=== PATIENT | female | born 1995 | race Caucasian/White ===

== ENCOUNTER 2018-12-13 08:10 | Inpatient (IN) | payer OTHER ==
[~2018-12-13] VITALS: Ht 182.9 cm; Wt 81.6 kg
[2018-12-13 08:16] VITALS: BP 134/89
[2018-12-13 08:36] LABS: URINE CLARITY CLEAR; URINE COLOR YELLOW
[2018-12-13 08:37] LABS: URINE BILIRUBIN NEGATIVE (Negative); URINE BLOOD NEGATIVE (Negative); URINE GLUCOSE-RANDOM* NEGATIVE (Negative); URINE KETONES 1+ (Negative); URINE LEUKOCYTES-REFLEX NEGATIVE (Negative); URINE NITRITE-REFLEX NEGATIVE (Negative); URINE PROTEIN (DIPSTICK) NEGATIVE (Negative); URINE UROBILINOGEN 0.2 E.U./dl (0.2-1.0)
[2018-12-13 08:46] LABS: ABSOLUTE NEUTROPHILS 7.1 thou/uL (1.4-8.2); BASOPHILS 0.6 % (0.0-2.0); EOSINOPHILS 0.3 % (0.0-3.0); HEMATOCRIT 40.1 % (37.0-47.0); HEMOGLOBIN 13.4 gm/dL (12.0-15.0); MCH 26.8 pg (26.0-34.0); MCHC 33.4 g/dL (28.0-37.0); MCV 80.2 fL (80.0-100.0); MONOCYTES 6.9 % (1.0-8.0); PLATELET COUNT 254 thou/uL (150-400); POLYS 78.2 % (36.0-66.0); RDW 14.2 % (10.5-14.5); WBC 9.1 thou/uL (4.0-11.0)
[2018-12-13 08:53] LABS: CALCIUM 9.7 mg/dL (8.5-10.1); CREATININE 1.1 mg/dL (0.6-1.0); POTASSIUM 3.7 mmol/L (3.5-5.1)
[2018-12-13 08:59] LABS: ALBUMIN 4.2 g/dL (3.4-5.0); TOTAL BILIRUBIN 0.3 mg/dL (<0.1-1.0); TOTAL PROTEIN 7.9 g/dL (6.4-8.2)
[2018-12-13 09:48] VITALS: BP 132/79
[2018-12-13 10:46] VITALS: BP 121/82
[2018-12-13 11:49] VITALS: BP 115/77
--- NOTE | 2018-12-13 11:51 | NUR ---
ASSUMED CARE OF PT AT 11:00. ARRIVED FROM ED IN STABLE CONDITION WITH S.O. AT BEDSIDE. ORIENTED TO ROOM AND CALL LIGHT. ADMISSION ASSESSMENT COMPLETED. A&0,X4. C/O RLQ ABD PAIN AND ACUTE APPENDITCITIS. ABD FLAT, SOFT, TENDER TO TOUCH. PAIN MEDS GIVEN ORDERED. DENIES N/V/D AT THIS TIME. LAST BM YESTERDAY, ACTIVE BOWEL SOUNDS. ALL OTHER SYSTEMS WNL, CLEAR LUNG SOUNDS AND REGULAR HEART SOUNDS. NO EDEMA. SKIN INTACT. POC LAP APPI AT 14:00 AND TO GO HOME AFTER. DR. HANSEN AT BEDSIDE EARLIER. PT STATES NO QUESTIONS OR CONCERNS. WILL CONTINUE TO MONITOR.
--- NOTE | 2018-12-13 12:13 | NUR ---
PAIN WELL CONTROLLED. PT LEFT FOR SURGERY IN STABLE CONDITION AT 12:13 WITH S.0. AT BEDSIDE AND ALL PT BELONGINGS.
[2018-12-13] MEDS ORDERED: NORCO 5-325 TA1 EACH PO (14:51)
--- NOTE | 2018-12-13 16:30 | NUR ---
PT ARRIVED TO ROOM FROM PACU IN STABLE CONDITION AT 16:30. S.O. AT BEDSIDE. 3 LAP SITES SEALED WITH DERMABOND, NO BLEEDING NOTED. ICE APPLIED TO SITE. ROOM AIR. DENIES NAUSEA. C/O 5/10 ABD PAIN, PAIN MEDS GIVEN ORDERED. TOLERATING CLEARS, WILL ADVANCE DIET. WILL CONTINUE TO MONITOR.
[2018-12-13 18:10] VITALS: BP 115/77
--- NOTE | 2018-12-13 19:56 | NUR ---
PT HAS DISCHARGE ORDERS. TOLERATED REGULAR DIET TRAY, NO N/V. PAIN WELL CONTROLLED WITH MEDS. LAP SITES APPEAR C/D/I. PT LEFT THE UNIT AT 19:50 VIA WHEELCHAIR IN STABLE CONDITION WITH S.O. SCRIPTS WERE GIVEN TO THE PATIENT AFTER SURGERY. IV REMOVED, NO BLEEDING NOTED. ALL BELONGINGS COLLECTED AND SENT WITH PT. PT STATES NO QUESTIONS OR CONCERNS.
--- NOTE | 2018-12-14 12:26 | O ---
[facility] [address] OPERATIVE REPORT Name: ED CALVERTN Room #: 432-P [facility] IN M.R.#: [id number] Admission: 12/13/18 Attend Phys: Radha Sorto MD, Discharge: 12/13/18 Date of : 89 Report #: [id number] THIS REPORT FOR: //name// CC: KIARA ULRICHWORTH FAM unknown Radha Sorto DATE OF SERVICE: 12/13/2018 PREOPERATIVE DIAGNOSIS: Acute appendicitis. POSTOPERATIVE DIAGNOSIS: Acute appendicitis. PROCEDURE: Laparoscopic appendectomy. SURGEON: Radha Sorto M.D. 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 ANESTHESIA: General endotracheal anesthesia. ESTIMATED BLOOD LOSS: Minimal (less than 5 mL). COMPLICATIONS: None appreciated. SPECIMENS: Appendix to pathology. INDICATIONS: The patient is a 23-year-old female who presented with severe sudden onset right lower quadrant abdominal pain and nausea, with a workup showing dilated appendix with periappendiceal stranding concerning for acute appendicitis. As such, indication was for the above-mentioned procedure today. DESCRIPTION OF PROCEDURE: After explaining the risks, benefits and alternatives of the procedure with the patient in detail and obtaining consent, the patient was brought to the operating room and placed supine on the operating room table. After conducting a thorough timeout procedure verifying correct patient and procedure, the patient was given general endotracheal anesthesia. Once adequate anesthesia was obtained, SCDs were placed on the patient's bilateral lower extremities. She was given a preoperative dose of antibiotics in line with the SCIP protocol. The patient's abdomen was prepped and draped in standard surgical sterile fashion. 5 mL of 0.5% Marcaine with epinephrine were used to anesthetize the skin in the infraumbilical location. A #15 bladed scalpel was used to create a 1 cm transverse skin incision at this location. A 12 mm Visiport was placed over a 5-mm 0-degree laparoscope, which was used to obtain intra-abdominal access through this incision site. Once intra-abdominal access was verified visually, the obturator for the trocar and laparoscope were both [address] [address] OPERATIVE REPORT Name: ED CALVERT Room #: 432-P [facility] IN .R.#: [id number] Admission: 12/13/18 Attend Phys: Radha Sorto MD, Discharge: 12/13/18 Date of : [birth year] Report #: [id number] removed and the abdomen was insufflated to 15 mmHg using carbon dioxide gas. The laparoscope was changed to a 5-mm 30-degree laparoscope, which was reintroduced through this trocar. The entire abdomen was evaluated to ensure no injury upon entry and no other pathology. The patient was now placed in Trendelenburg position with right side elevated, and I proceeded to place two additional 5 mm trocars. One was placed in suprapubic location and second in the left lower quadrant. Both were placed under direct vision after anesthetizing the skin at each location with 5 mL of 0.5% Marcaine with epinephrine, and I created small skin nicks using a #15 bladed scalpel. I was able to easily identify a markedly dilated and enlarged appendix with a healthy base. A window was made in the mesoappendix near its base using [place] dissector. The laparoscope was then removed, changed the left lower quadrant trocar. The Argo 45 mm stapler with a blue load was entered into the abdomen through the infraumbilical trocar where one blade of the stapler was passed through the window in the mesoappendix. The stapler was seated at the healthy base of the appendix, clamped and fired completely transecting the appendix. The stapler was removed and the Harmonic scalpel was used to transect the mesoappendix for hemostasis. The EndoCatch bag was then placed in the infraumbilical trocar, and the specimen was placed within it under direct vision. The pursestring suture was drawn and specimen was removed from the abdomen under direct vision with ease. I then closed the infraumbilical fascial incision using 0 PDS suture on the Westley-Albert suture passer device under direct vision and tied this down. One final evaluation of the staple line showed just a very gentle ooze from the one edge of the staple line and as such, a laparoscopic clip electrostatic painter was used to place a clip on this for complete hemostasis. We had no spillage and complete hemostasis at this juncture. The abdomen was fully desufflated. All remaining trocars were removed under direct vision. A 4-0 Monocryl was used in a standard subcuticular fashion for all skin incisions, and Dermabond glue was applied to all skin wounds. At the end of the procedure, all instrument, needle and sponge counts were correct. The patient tolerated the procedure without incident, was awakened in the operating room and transitioned to the recovery room in stable condition with no apparent complications. <ELECTRONICALLY SIGNED> By: Radha Sorto MD, FACS 12/14/18 [id number] [id number] Radha Sorto MD, FACS /nt
== END 2018-12-13 20:03 | disposition home or self-care (01) | DRG 343 ==
LOC: ER 08:10 → EROBS 09:35 → 4E 10:42
PROVIDERS: Emergency Medicine; ADMIT Surgery
PROC: 0DTJ4ZZ Resection of Appendix, Percutaneous Endoscopic Approach (ICD-10-PCS; principal; 2018-12-13)
DX: K35.80 Unspecified acute appendicitis (principal); J45.909 Unspecified asthma, uncomplicated; Z79.899 Other long term (current) drug therapy
CPT/HCPCS: 10084; 50010; 50101; 62110; 62900; 70005